=== PATIENT | female | born 1960 | race Caucasian/White ===

== ENCOUNTER 2023-12-23 00:43 | Day surgery (SDC) | payer BC, SELFPAY ==
[2023-12-13 10:13] VITALS: BMI 39.4
[2023-12-23 12:10] VITALS: BP 180/92; PULSE 70; RESP 18; TEMP 36.4; O2SAT 99; BMI 40.3
[2023-12-23 12:17] VITALS: BP 152/70
[2023-12-23] MEDS: LACTATED RINGERS 1,000 ML 150 ML IV CONT (12:35)
--- NOTE | 2023-12-23 12:43 | WPDANESEPPF ---
Anes - Initial Pre Proc Eval Procedure: Operation Date: 12/23/23 16:00 Proposed Procedures p Colonoscopy - Tristan Sandoval MD Date/Time: 12/23/23 12:43 Surgeon: Tristan Sandoval MD Pre Op Diagnosis: Other fecal abnormalities Patient Data Age: 63 Gender: F Height: 1.57 m Weight: 100 kg Last Vital Signs Temp 97.5 F L 12/23/23 12:10 Pulse 70 12/23/23 12:10 Resp 18 12/23/23 12:10 BP 152/70 H 12/23/23 12:17 Pulse Ox 99 12/23/23 12:10 O2 Del Method Room Air 12/23/23 12:10 Allergies Allergy/AdvReac Type Severity Reaction Status Date / Time No Known Allergies Allergy Verified 12/23/23 12:08 Home Medications Medication Instructions Recorded Confirmed Type nebivolol 5 mg tablet (Bystolic) 10 mg PO DAILY #180 tabs 07/10/23 12/23/23 Rx montelukast 10 mg tablet 10 mg PO DAILY #90 tabs 07/11/23 12/23/23 Rx losartan 50 mg tablet See Rx Instructions .Route 10/10/23 12/23/23 Rx .COMPLEX #135 tabs Patient hx anesthesia problems: none Family hx anesthesia problems: none Results Review: All pre-operative results and documents have been reviewed as part of the pre-operative evaluation. [facility] Past Medical History Medical History BMI 39.0-39.9,adult Family History Family History Father Hypertension Sibling Hypertension Grandparent Cerebrovascular accident Family history of malignant neoplasm Social History Social History Smoking status: Never smoker Alcohol intake: never Substance use: never Substance use type: does not use Lack of Transportation: No Lack of Food: Never True Current Housing: I Have Housing Concerned About Future Housing: No Difficulty Paying Gas/Electric Bills: No Difficulty Paying for Meds: No Currently Unemployed: No Education: Bachelor's Degree Difficulty w/ Childcare or Family Care: No Living arrangements: alone Gender identity (if verbalized by the patient): Female Anes - Eval Final PreProcedure Day of Procedure 12/23/23 12:43 Patient weight: obese Heart: regular rate and rhythm Lungs: clear to auscultation Airway: Mallampati scale class II Neurological: alert and oriented Last oral intake: >/= 8 hours ASA classification: II Emergent: no Anesthetic plan: proceed Anesthesia type and monitoring: general GIVS and standard monitoring Results Review: All pre-operative results and documents have been reviewed as part of the pre-operative evaluation. HTN, asthma w chronic cough, suspect REY, never had sleep study. Pt can walk 1 flight of stairw without cp or sob. Informed Consent: The patient's anesthetic plan and its attendant risks and benefits were discussed with the patient/family/POA. Questions were solicited and answers provided to the satisfaction of the patient/family/POA.
--- NOTE | 2023-12-23 13:01 | PM.HPGS ---
History of Present Illness History of Present Illness Consent: Risks, benefits, and alternatives have been discussed and questions answered. Patient agrees to proceed with procedure. Chief complaint: Other fecal abnormalities Narrative: Bella Casarez is a 63 year old female here for first colonoscopy, + cologuard Review of Systems Review of Systems: All systems reviewed & are unremarkable except as noted in HPI and below PMFSH Past Medical History Medical History BMI 39.0-39.9,adult Family History Family History Father Hypertension Sibling Hypertension Grandparent Cerebrovascular accident Family history of malignant neoplasm Social History Social History Smoking status: Never smoker Alcohol intake: never Substance use: never Substance use type: does not use Lack of Transportation: No Lack of Food: Never True Current Housing: I Have Housing Concerned About Future Housing: No Difficulty Paying Gas/Electric Bills: No Difficulty Paying for Meds: No Currently Unemployed: No Education: Bachelor's Degree Difficulty w/ Childcare or Family Care: No Living arrangements: alone Gender identity (if verbalized by the patient): Female Meds Home Medications and Allergies Home Medications Medication Instructions Recorded Confirmed Type nebivolol 5 mg tablet (Bystolic) 10 mg PO DAILY #180 tabs 07/10/23 12/23/23 Rx montelukast 10 mg tablet 10 mg PO DAILY #90 tabs 07/11/23 12/23/23 Rx losartan 50 mg tablet See Rx Instructions .Route 10/10/23 12/23/23 Rx .COMPLEX #135 tabs Allergies Allergy/AdvReac Type Severity Reaction Status Date / Time No Known Allergies Allergy Verified 12/23/23 12:08 Vital Signs Vital Signs - 24 hr 12/23/23 12:10 12/23/23 12:17 Temperature 97.5 F L Pulse Rate 70 Respiratory Rate 18 Blood Pressure 180/92 H 152/70 H Pulse Oximetry 99 Oxygen Delivery Room Air Exam Const: General: comfortable and no acute distress HENMT: Face/Nose/Sinus: Normal nares present Eyes: General: appearance normal, both eyes and all related structures Neck: Neck: no JVD Resp: Auscultation: clear to auscultation bilaterally Cardio: Rate: regular rate Rhythm: regular rhythm GI: Inspection: non-distended GI Palp: Yes Soft to palpation Skin: General skin exam: normal color Neuro: General: gait normal Speech: normal speech Extrem: General: normal to inspection Psych: Mental Status: mental status grossly normal Assessment and Plan Assessment and plan (1) Positive colorectal cancer screening using Cologuard test: Code(s): R19.5 - Other fecal abnormalities Status: Acute Assessment and Plan: colonoscopy
[2023-12-23 13:23] VITALS: BP 116/56; PULSE 61; RESP 24; O2SAT 98
[2023-12-23 13:33] VITALS: BP 120/63; PULSE 62; RESP 23; O2SAT 99
[2023-12-23 13:43] VITALS: BP 138/74; PULSE 60; RESP 16; O2SAT 98
--- NOTE | 2023-12-23 14:31 | P.PNAN_ITS ---
Anes - Initial Pre Proc Eval Procedure: Operation Date: 12/23/23 16:00 Proposed Procedures p Colonoscopy - Tristan Sandoval MD Date/Time: 12/23/23 14:31 Surgeon: Tristan Sandoval MD Pre Op Diagnosis: Other fecal abnormalities Patient Data Age: 63 Gender: F Height: 1.57 m Weight: 100 kg Last Vital Signs Temp 97.5 F L 12/23/23 12:10 Pulse 60 12/23/23 13:43 Resp 16 12/23/23 13:43 BP 138/74 12/23/23 13:43 Pulse Ox 98 12/23/23 13:43 O2 Del Method Room Air 12/23/23 13:43 Allergies Allergy/AdvReac Type Severity Reaction Status Date / Time No Known Allergies Allergy Verified 12/23/23 12:08 Home Medications Medication Instructions Recorded Confirmed Type nebivolol 5 mg tablet (Bystolic) 10 mg PO DAILY #180 tabs 07/10/23 12/23/23 Rx montelukast 10 mg tablet 10 mg PO DAILY #90 tabs 07/11/23 12/23/23 Rx losartan 50 mg tablet See Rx Instructions .Route 10/10/23 12/23/23 Rx .COMPLEX #135 tabs Patient hx anesthesia problems: none Family hx anesthesia problems: none Results Review: All pre-operative results and documents have been reviewed as part of the pre- operative evaluation. [facility] Past Medical History Medical History BMI 39.0-39.9,adult Family History Family History Father Hypertension Sibling Hypertension Grandparent Cerebrovascular accident Family history of malignant neoplasm Social History Social History Smoking status: Never smoker Alcohol intake: never Substance use: never Substance use type: does not use Lack of Transportation: No Lack of Food: Never True Current Housing: I Have Housing Concerned About Future Housing: No Difficulty Paying Gas/Electric Bills: No Difficulty Paying for Meds: No Currently Unemployed: No Education: Bachelor's Degree Difficulty w/ Childcare or Family Care: No Living arrangements: alone Gender identity (if verbalized by the patient): Female Anes - Eval Final PreProcedure Day of Procedure 12/23/23 14:31 Patient weight: obese Heart: regular rate and rhythm Lungs: clear to auscultation Airway: Mallampati scale and special considerations (Upper and lower partial. ) Neurological: alert and oriented Last oral intake: >/= 8 hours ASA classification: II Emergent: no Anesthetic plan: proceed Anesthesia type and monitoring: general GIVS and standard monitoring Results Review: All pre-operative results and documents have been reviewed as part of the pre- operative evaluation. HTN, pt vapes daily. Rides stationary bike most days, no cp or sob. Informed Consent: The patient's anesthetic plan and its attendant risks and benefits were discussed with the patient/family/POA. Questions were solicited and answers provided to the satisfaction of the patient/family/POA.
== END 2023-12-23 13:57 | disposition home or self-care (01) ==
PROVIDERS: PCP Family Medicine; Referring Provider Nurse Practitioner Family; Visit Provider Internal Medicine Gastroenterology
PROC: 0DJD8ZZ Inspection of Lower Intestinal Tract, Via Natural or Artificial Opening Endoscopic (ICD-10-PCS; CPT 45378; principal; 2023-12-23 16:00)
DX: K64.8 Other hemorrhoids (principal); E66.9 Obesity, unspecified; Z68.41 Body mass index [BMI] 40.0-44.9, adult
CPT/HCPCS: 45378; J2704; J7120